=== PATIENT | female | born 1975 ===

== ENCOUNTER 2017-11-30 15:58 | Emergency (ER) | payer OTHER ==
[2017-11-30 16:18] VITALS: BP 129/83; PULSE 102; RESP 18; TEMP 98.6; O2SAT 99
--- NOTE | 2017-11-30 17:16 | ED PDOC ---
HPI: General Adult Time Seen by Provider: 11/30/17 16:21 Chief Complaint (Nursing): Upper Extremity Problem/Injury Chief Complaint (Provider): Neck Pain History Per: Patient History/Exam Limitations: no limitations Onset/Duration Of Symptoms: Mins (prior to arrival) Current Symptoms Are (Timing): Still Present Additional Complaint(s): 42 year old female presents to the ED for evaluation of neck pain s/p falling prior to arrival. Patient states that she was standing on top of a four foot slide, and when she started to walk down towards the decline portion, slipped and fell backwards striking the back of her head on the slide, injuring her neck. Otherwise, she denies numbness, tingling, loss of consciousness, nausea, vomiting, previous traumatic brain injury, or other injuries. PMD: Keanu Booker Past Medical History Reviewed: Historical Data, Nursing Documentation, Vital Signs Vital Signs: Last Vital Signs Temp 98.6 F 11/30/17 16:14 Pulse 102 H 11/30/17 16:14 Resp 18 11/30/17 16:14 BP 129/83 11/30/17 16:14 Pulse Ox 99 11/30/17 20:13 - Medical History PMH: No Chronic Diseases - Surgical History Surgical History: No Surg Hx - Family History Family History: States: Unknown Family Hx - Social History Current smoker - smoking cessation education provided: No Alcohol: None Drugs: Denies - Home Medications Home Medications: Ambulatory Orders Medication Instructions Recorded Cyclobenzaprine [Cyclobenzaprine 10 mg PO Q8 PRN #10 tab 11/30/17 HCl] Naproxen [Naprosyn] 500 mg PO BID PRN #10 tab 11/30/17 - Allergies Allergies/Adverse Reactions: Allergies Allergy/AdvReac Type Severity Reaction Status Date / Time ciprofloxacin [From Cipro] Allergy ANAPHYLAXIS Verified 11/30/17 16:14 Iodinated Contrast- Oral and Allergy SHORTNESS Verified 11/30/17 16:14 IV Dye OF BREATH levofloxacin [From Levaquin] Allergy ANAPHYLAXIS Verified 11/30/17 16:14 Review of Systems ROS Statement: Except As Marked, All Systems Reviewed And Found Negative Gastrointestinal: Negative for: Nausea, Vomiting Musculoskeletal: Positive for: Neck Pain Neurological: Negative for: Numbness (or tingling), Other (loss of consciousness ) Physical Exam - Reviewed Nursing Documentation Reviewed: Yes Vital Signs Reviewed: Yes - Physical Exam Appears: Positive for: No Acute Distress Head Exam: Positive for: ATRAUMATIC, NORMOCEPHALIC Skin: Positive for: Normal Color, Warm, Dry Eye Exam: Positive for: Normal appearance ENT: Negative for: Other (hemotympanum bilaterally) Neck: Positive for: Decreased ROM (secondary to pain) Back: Positive for: Other (bilateral paracervical tenderness). Negative for: Vertebral Tenderness Neurologic/Psych: Positive for: Alert, Oriented (x3), Gait (steady and unassisted in ED) - ECG O2 Sat by Pulse Oximetry: 99 Medical Decision Making Medical Decision Making: Time: 1628 Initial Impression: neck pain s/p fall Initial Plan: --CT c-spine w/o contrast --CT head w/o contrast --Flexeril 10 mg PO --Tylenol [address] c-spine FINDINGS: Vertebrae: No acute fracture. Normal alignment. Discs/spinal canal/neural foramina: Mild multilevel degenerative changes most pronounced at C5-6. Mild C5-6 spinal canal narrowing and mild left-sided C5-6 neuroforaminal narrowing. Soft tissues: No prevertebral soft tissue swelling. Lung apices: Unremarkable as visualized. IMPRESSION: No acute fracture. 2011 CT head FINDINGS: Brain: No hemorrhage, edema, midline shift or mass effect. No acute large territorial infarction is present. Ventricles: Caliber within normal limits given patient's age. Bones/joints: Within normal limits. Soft tissues: Within normal limits. Sinuses: Visualized portions clear. Mastoid air cells: Clear. IMPRESSION: No acute intracranial finding. Scribe Attestation: Documented by Latanya Goyal acting as a scribe for Beto Morocho PA-C. Provider Scribe Attestation: All medical record entries made by the Scribe were at my direction and personally dictated by me. I have reviewed the chart and agree that the record accurately reflects my personal performance of the history, physical exam, medical decision making, and the department course for this patient. I have also personally directed, reviewed, and agree with the discharge instructions and disposition. Disposition - Clinical Impression Clinical Impression: Head injury, Cervical sprain - Patient ED Disposition Is Patient to be Admitted: No - Disposition Referrals: [facility] [Outside] Disposition: Routine/Home Disposition Time: 20:10 Condition: STABLE Additional Instructions: JUVENTINO ROMERO, thank you for letting us take care of you today. Your provider was Nataliya Kaur MD and you were treated for NECK PAIN. The emergency medical care you received today was directed at your acute symptoms. If you were prescribed any medication, please fill it and take as directed. It may take several days for your symptoms to resolve. Return to the Emergency Department if your symptoms worsen, do not improve, or if you have any other problems. Please contact your doctor or call one of the physicians/clinics you have been referred to that are listed on the Patient Visit Information form that is included in your discharge packet. Bring any paperwork you were given at discharge with you along with any medications you are taking to your follow up visit. Our treatment cannot replace ongoing medical care by a primary care provider outside of the emergency department. Thank you for allowing the [facility] team to be part of your care today. If you had an X-Ray or CT scan: A Radiologist will review the ED reading if any change in treatment is needed we will contact you. If you had a blood, urine, or wound culture: It will take several days for the results, if any change in treatment is needed we will contact you. If you had an STI test: It will take 48 hours for the results. Please call after 1 week if you have not heard back. Prescriptions: Cyclobenzaprine [Cyclobenzaprine HCl] 10 mg PO Q8 PRN #10 tab PRN Reason: Muscle Spasm Naproxen [Naprosyn] 500 mg PO BID PRN #10 tab PRN Reason: Pain Instructions: Closed Head Injury (DC), Neck Sprain (DC) Forms: [facility] (French), [facility] ED School/Work Excuse Print Language: SURINAMESE
--- NOTE | 2017-12-01 11:05 | CT ---
Date of service: 11/30/2017 PROCEDURE: CT HEAD WITHOUT CONTRAST. HISTORY: trauma COMPARISON: None available. TECHNIQUE: Axial computed tomography images were obtained through the head/brain without intravenous contrast. Radiation dose: Total exam DLP = 888.99 mGy-cm. This CT exam was performed using one or more of the following dose reduction techniques: Automated exposure control, adjustment of the mA and/or kV according to patient size, and/or use of iterative reconstruction technique. FINDINGS: HEMORRHAGE: No intracranial hemorrhage. BRAIN: Normal jones-white matter differentiation and density are appreciated throughout the cerebrum and cerebellum with the brainstem appearing unremarkable as well. There is no mass effect. There is no suspicious extra-axial fluid collection and the midline brain anatomy appears diffusely unremarkable. VENTRICLES: Unremarkable. No hydrocephalus. CALVARIUM: No destructive bony lesion or displaced fracture identified including through the skullbase. PARANASAL SINUSES: Unremarkable as visualized. No significant inflammatory changes. MASTOID AIR CELLS: Unremarkable as visualized. No inflammatory changes. OTHER FINDINGS: None. IMPRESSION: Unremarkable noncontrast CT of the Head. Concordant preliminary report from [facility], 11/30/2017.
--- NOTE | 2017-12-01 11:11 | CT ---
Date of service: 11/30/2017 PROCEDURE: CT Cervical Spine without contrast HISTORY: trauma COMPARISON: None available. TECHNIQUE: Axial computed tomography images were obtained of the cervical spine without the use of intravenous contrast. Coronal and sagittal reformatted images were created and reviewed. Radiation dose: Total exam DLP = 258.45 mGy-cm. This CT exam was performed using one or more of the following dose reduction techniques: Automated exposure control, adjustment of the mA and/or kV according to patient size, and/or use of iterative reconstruction technique. FINDINGS: VERTEBRAE: No fracture. Normal alignment. No destructive bony lesion. [id number] cervical spondylosis C5-6. Facet joints diffusely unremarkable appearing. DISCS/SPINAL CANAL/NEURAL FORAMINA: No significant central canal. There is mild to moderate left C6 foraminal stenosis identified at C5-6 with none on the right. This due to asymmetric left greater than right uncovertebral facet joint degenerative change and posterior osteophytic ridging. No additional significant neural foraminal stenosis. Discs heights are grossly preserved. PARASPINAL SOFT TISSUES: Unremarkable. OTHER FINDINGS: Incidental lucency right thyroid lobe for which follow-up ultrasound can be performed for additional characterization. IMPRESSION: No fracture or spondylolisthesis. Limited degenerative findings as discussed above including a [id number] left C6 root foraminal stenosis. Incidental lucency right thyroid lobe for which follow-up ultrasound can be performed for additional characterization. PA review assigned. Discordant preliminary report from [facility], 11/30/2017.
== END 2017-11-30 20:44 | disposition home or self-care (01) ==
LOC: H.ER 15:58
DX: S09.90XA Unspecified injury of head, initial encounter (principal); S13.4XXA Sprain of ligaments of cervical spine, initial encounter; W19.XXXA Unspecified fall, initial encounter; Y92.89 Other specified places as the place of occurrence of the external cause